=== PATIENT | female | born 1975 | race Caucasian/White ===

== ENCOUNTER 2017-03-25 21:29 | Emergency (ER) | payer OTHER ==
[2017-03-25 22:58] VITALS: BP 144/78
== END 2017-03-25 22:58 | disposition home or self-care (01) ==
LOC: ED 21:29
DX: S30.0XXA Contusion of lower back and pelvis, initial encounter (principal); Z90.89 Acquired absence of other organs; Z88.0 Allergy status to penicillin; W18.39XA Other fall on same level, initial encounter; Y93.89 Activity, other specified; Y92.89 Other specified places as the place of occurrence of the external cause; Y99.8 Other external cause status
CPT/HCPCS: J1885

== ENCOUNTER 2018-02-04 11:02 | Emergency (ER) | payer OTHER ==
[~2018-02-04] VITALS: Ht 160 cm; Wt 138.3 kg
[2018-02-04 11:22] VITALS: Ht 160 cm; Wt 138.3 kg
[2018-02-04 13:29] VITALS: BP 152/90
== END 2018-02-04 13:29 | disposition home or self-care (01) ==
LOC: ED 11:02
DX: M54.5 Low back pain (principal); J45.909 Unspecified asthma, uncomplicated; I10 Essential (primary) hypertension
CPT/HCPCS: J1885

== ENCOUNTER 2019-07-30 19:10 | Emergency (ER) | payer OTHER ==
[~2019-07-30] VITALS: Ht 160 cm; Wt 144.2 kg
[2019-07-30 20:07] VITALS: BP 122/62; Ht 160 cm; Wt 144.2 kg
== END 2019-07-30 23:12 | disposition home or self-care (01) ==
LOC: ED 19:10
DX: S83.92XA Sprain of unspecified site of left knee, initial encounter (principal); J45.909 Unspecified asthma, uncomplicated; I10 Essential (primary) hypertension; Z88.0 Allergy status to penicillin; W01.0XXA Fall on same level from slipping, tripping and stumbling without subsequent striking against object, initial encounter; Y93.89 Activity, other specified; Y92.89 Other specified places as the place of occurrence of the external cause; Y99.8 Other external cause status

== ENCOUNTER 2019-09-26 13:06 | Emergency (ER) | payer BC ==
[~2019-09-26] VITALS: Ht 160 cm; Wt 138.3 kg
[2019-09-26 13:12] VITALS: BP 140/51; Ht 160 cm; Wt 138.3 kg
== END 2019-09-26 14:34 | disposition home or self-care (01) ==
LOC: ED 13:06
DX: J32.9 Chronic sinusitis, unspecified (principal); J45.909 Unspecified asthma, uncomplicated; I10 Essential (primary) hypertension; Z90.49 Acquired absence of other specified parts of digestive tract

== ENCOUNTER 2020-03-08 18:14 | Emergency (ER) | payer OTHER ==
[~2020-03-08] VITALS: Ht 162.6 cm; Wt 138.8 kg
[2020-03-08 18:38] VITALS: Ht 162.6 cm; Wt 138.8 kg
[2020-03-08 20:25] VITALS: BP 167/93
== END 2020-03-08 20:25 | disposition home or self-care (01) ==
LOC: ED 18:14
DX: M25.562 Pain in left knee (principal); G89.29 Other chronic pain; J45.909 Unspecified asthma, uncomplicated; I10 Essential (primary) hypertension; Z88.0 Allergy status to penicillin
CPT/HCPCS: J1885